=== PATIENT | male | born 1995 | race Two or more races ===

== ENCOUNTER 2019-07-19 14:01 | Inpatient (IN) | payer OTHER ==
[2019-07-19 15:47] VITALS: BMI 19.0
--- NOTE | 2019-07-19 17:48 | HP ---
CIWA Score - Admission Criteria [facility] Guidelines: Admission for Medically Managed Detox: Requires at least one of the followin. CIWA greater than 12 2. Seizures within the past 24 hours 3. Delirium tremens within the past 24 hours 4. Hallucinations within the past 24 hours 5. Acute intervention needed for co occurring medical disorder 6. Acute intervention needed for co occurring psychiatric disorder 7. Severe withdrawal that cannot be handled at a lower level of care (continued vomiting, continued diarrhea, abnormal vital signs) requiring intravenous medication and/or fluids 8. Admission ROS S - HPI Allergies/Adverse Reactions: Allergies Allergy/AdvReac Type Severity Reaction Status Date / Time No Known Allergies Allergy Verified 07/19/19 15:27 History of Present Illness: pt here requesting rehab from cocaine use , reports first age of use 18 , current daily use 3 bags /day , went to [facility] yesterday after using K2 felt dizzy and could not feel his right arm, per d/c paperwork pt had b/w done, ECG , and was referred to this facility . cannabis : 08/28 /day , first age of use 16 tobacco : 08/24 ppd etoh : denies regular use , states used yesterday " it was Thanksgiving " Percocet - illicit use " whenever I can get it, whenever I have money " PMHX : denies PSHX : left inguinal hernia age 22 , r shoulder cyst/ lipoma age 18 PSych : denies , denies SI / HI SHX : lives w/ mother , no children Search Terms: jonh yury, 1995 Search Date: 07/19/2019 05:52:12 PM This report was requested by: Genesis Silva | Reference #: [id number] There are no results for the search terms that you entered. Exam Limitations: No Limitations - Ebola screening Have you traveled outside of the country in the last 21 days: No Have you had contact with anyone from an Ebola affected area: No Do you have a fever: No - Review of Systems Constitutional: Loss of Appetite EENT: reports: No Symptoms Reported Respiratory: reports: No Symptoms reported Cardiac: reports: No Symptoms Reported GI: reports: Diarrhea, Nausea : reports: No Symptoms Reported Musculoskeletal: reports: No Symptoms Reported Integumentary: reports: See HPI Neuro: reports: No Symptoms reported Endocrine: reports: No Symptoms Reported Hematology: reports: No Symptoms Reported Psychiatric: reports: Orientated x3, Anxious Patient History - Smoking Cessation Smoking history: Current every day smoker Have you smoked in the past 12 months: Yes Hx Chewing Tobacco Use: No Initiated information on smoking cessation: Yes 'Breaking Loose' booklet given: 07/19/19 - Substances abused Alcohol Substance route: Oral Frequency: 1-3 times last 30 days Amount used: 3 cups Age of first use: 17 Date of last use: 07/18/19 Cocaine Substance route: Inhalation Frequency: Daily Amount used: 1 bundle Age of first use: 18 Date of last use: 07/12/19 Heroin Substance route: Inhalation Frequency: Daily Amount used: 3 bags Age of first use: 18 Date of last use: 07/18/19 Marijuana/Hashish Substance route: Smoking Frequency: Daily Amount used: 18 Age of first use: 16 Date of last use: 07/18/19 Admission Physical Exam BHS - Vital Signs Vital Signs: Vital Signs - 24 hr 07/19/19 15:28 Temperature 98.6 F Pulse Rate 74 Respiratory 20 Rate Blood Pressure 135/82 - Physical General Appearance: Yes: Mild Distress, Anxious HEENTM: Yes: EOMI, Hearing grossly Normal, Normocephalic, Normal Voice Respiratory: Yes: Chest Non-Tender, Lungs Clear, Normal Breath Sounds, No Respiratory Distress, No Accessory Muscle Use Neck: Yes: No masses,lesions,Nodules, Trachea in good position Cardiology: Yes: Regular Rhythm, Regular Rate, S1, S2 Abdominal: Yes: Non Tender, Soft Musculoskeletal: Yes: Gait Steady Extremities: Yes: Normal Capillary Refill, Normal Range of Motion, Non-Tender Neurological: Yes: Fully Oriented, Alert, Motor Strength 5/5 Integumentary: Yes: Warm - Diagnostic (1) Cocaine abuse Current Visit: Yes Status: Chronic (2) Inhalant abuse with other inhalant-induced disorder Current Visit: Yes Status: Chronic (3) Nicotine dependence Current Visit: Yes Status: Chronic Qualifiers: Nicotine product type: cigarettes Urine Drug Screen - Test Device Lot number: [id number] Expiration date: 03/19/21 - Control Is test valid?: Yes - Results Drug screen NEGATIVE: No Urine drug screen results: THC-Marijuana, LORTETA-Cocaine Inpatient Rehab Admission - Rehab Decision to Admit Inpatient rehab admission?: Yes - Initial Determination Are CD services needed?: Yes Free of communicable disease: Yes Not in need of hospitalization: Yes - Rehab Admission Criteria Previous failed treatment: No Poor recovery environment: No Comorbidities: No Lacks judgement: Yes Patient is meeting Inpatient Rehab admission criteria:: Yes
[2019-07-19] MEDS ORDERED: LOPERAMIDE HCL 2 MG CAPSULE PO PRN (18:49)
[2019-07-19] MEDS ORDERED: ACETAMINOPHEN 325 MG TABLET (FP) PO PRN (18:49)
[2019-07-19] MEDS ORDERED: MAGNESIUM HYDROX 2400MG/30ML ORAL SUSPENSION 30 ML CUP PO PRN (18:49)
[2019-07-19] MEDS ORDERED: MAGNESIUM CITRATE 300 ML BOTTLE PO PRN (18:49)
[2019-07-19] MEDS ORDERED: guaiFENesin 200 MG/10 ML 10 ML UNIT-DOSE CUPS PO PRN (18:49)
[2019-07-19] MEDS ORDERED: P-EPHED 60MG/TRIPROLIDI 2.5MG TABLET PO PRN (18:49)
[2019-07-19] MEDS ORDERED: IBUPROFEN 400 MG TABLET (FP) PO PRN (18:49)
[2019-07-19] MEDS ORDERED: MAG HYDROX/AL HYDROX/SIMETH 30 ML UNIT-DOSE CUP PO PRN (18:49)
[2019-07-19] MEDS ORDERED: MENTHOL/PHENOL 1 EACH UD MM PRN (18:49)
[2019-07-19] MEDS ORDERED: TUBERCULIN PPD 5 TU/0.1ML VIAL ID ONE (19:49)
[2019-07-19] MEDS: MELATONIN 5 MG TABLETS PO PRN (21:22)
[2019-07-19] MEDS: THIAMINE HCL 100 MG TABLET (FP) PO SCH (21:23)
[2019-07-20] MEDS: PRENATAL VITAMINS W/ FOLIC ACID TABLET (FP) PO SCH (09:56)
[2019-07-20 12:28] LABS: HEMATOCRIT 44.7 % (35.4-49); HEMOGLOBIN 14.7 GM/dL (11.7-16.9); MCH 29.9 pg (25.7-33.7); MCHC 32.8 g/dl (32.0-35.9); MEAN CELL VOLUME 91.2 fl (80-96); MEAN PLT VOLUME 9.5 fl (7.5-11.1); PLATELET COUNT 322 K/MM3 (134-434); RDW 12.1 % (11.9-15.9); WHITE BLOOD COUNT 8.1 K/mm3 (4.0-10.0)
[2019-07-20 12:37] LABS: BILIRUBIN,TOTAL 0.9 mg/dL (0.2-1); BLOOD UREA NITROGEN 9.5 mg/dL (7-18); CALCIUM 9.5 mg/dL (8.5-10.1); CREATININE 1.1 mg/dL (0.55-1.3)
[2019-07-20] MEDS: hydrOXYzine PAMOATE 25 MG CAPSULE (FP) PO PRN ×2 (17:26→21:32)
[2019-07-20] MEDS: NICOTINE POLACRILEX 2 MG GUM BC PRN ×2 (17:26→21:50)
[2019-07-20] MEDS: THIAMINE HCL 100 MG TABLET (FP) PO SCH (21:32)
[2019-07-20] MEDS: MELATONIN 5 MG TABLETS PO PRN (21:33)
[2019-07-21] MEDS: PRENATAL VITAMINS W/ FOLIC ACID TABLET (FP) PO SCH (10:03)
[2019-07-21] MEDS: hydrOXYzine PAMOATE 25 MG CAPSULE (FP) PO PRN ×2 (10:16→21:45)
[2019-07-21] MEDS: NICOTINE POLACRILEX 2 MG GUM BC PRN (10:18)
[2019-07-21] MEDS: THIAMINE HCL 100 MG TABLET (FP) PO SCH (21:44)
[2019-07-21] MEDS: MELATONIN 5 MG TABLETS PO PRN (21:44)
[2019-07-22 07:01] VITALS: BP 136/88; PULSE 80; TEMP 97.8
[2019-07-22] MEDS: NICOTINE POLACRILEX 2 MG GUM BC PRN (10:58)
[2019-07-22] MEDS: hydrOXYzine PAMOATE 25 MG CAPSULE (FP) PO PRN (10:59)
[2019-07-22] MEDS: PRENATAL VITAMINS W/ FOLIC ACID TABLET (FP) PO SCH (11:27)
--- NOTE | 2019-07-22 12:33 | PN ---
[facility] Progress Note Note: Pt is a 24 y/o male with a hx of PEBBLES admitted to rehab from [facility] on 07/19/19. Pt reports he goes to [facility] for medical care but does not have a primary care doctor. pt reports anxiety and urge to leave treatment and go to "smoke wee and crack". Reports he is not hydrating enough except water with medications. Pt reports vistaril 25 mg "not doing me nothing". Vital Signs - 24 hr 07/22/19 07/22/19 07/22/19 00:30 03:30 07:00 Temperature 97.8 F Pulse Rate 80 Respiratory 18 18 18 Rate Blood Pressure 136/88 Laboratory Tests 07/20/19 07/20/19 07/20/19 10:10 10:10 10:10 WBC 8.1 RBC 4.90 Hgb 14.7 Hct 44.7 MCV 91.2 MCH 29.9 MCHC 32.8 RDW 12.1 Plt Count 322 MPV 9.5 Sodium 138 Potassium 4.0 Chloride 107 Carbon Dioxide 29 Anion Gap 3 L BUN 9.5 Creatinine 1.1 Est GFR (CKD-EPI)AfAm 109.86 Est GFR (CKD-EPI)NonAf 94.79 Random Glucose 75 Calcium 9.5 Total Bilirubin 0.9 AST 11 L ALT 23 Alkaline Phosphatase 94 Total Protein 7.0 Albumin 4.0 HIV 1&2 Antibody Screen Negative HIV P24 Antigen Negative UA result pending A/P New rehab pt. Maintain safety Continue rehab Vistaril 50 mg po q4h prn for anxiety/agitations Encouraged pt to increase po fluids and focus on treatment.
[2019-07-22 15:33] LABS: PH,URINE 6.5 (5.0-8.0); URINE APPEARANCE CLEAR; URINE BILIRUBIN NEGATIVE (NEGATIVE); URINE COLOR YELLOW; URINE GLUCOSE (UA) NEGATIVE (NEGATIVE); URINE KETONE NEGATIVE (NEGATIVE); URINE LEUK ESTERASE NEGATIVE (NEGATIVE); URINE NITRITE NEGATIVE (NEGATIVE); URINE PROTEIN NEGATIVE (NEGATIVE); URINE UROBILINOGEN 0.2 mg/dL (0.2-1.0)
[2019-07-22] MEDS: MELATONIN 5 MG TABLETS PO PRN (21:29)
[2019-07-22] MEDS: hydrOXYzine PAMOATE 50 MG CAPSULE (FP) PO PRN (21:29)
[2019-07-22] MEDS: THIAMINE HCL 100 MG TABLET (FP) PO SCH (21:29)
[2019-07-23] MEDS: PRENATAL VITAMINS W/ FOLIC ACID TABLET (FP) PO SCH (10:29)
[2019-07-23] MEDS: hydrOXYzine PAMOATE 50 MG CAPSULE (FP) PO PRN (10:30)
[2019-07-23] MEDS: NICOTINE POLACRILEX 2 MG GUM BC PRN (10:31)
--- NOTE | 2019-07-23 11:59 | DS ---
[facility] Rehab Discharge Summary - [facility] Rehab Discharge Summary Admission Date: 07/19/19 Discharge Date: 07/23/19 - History Present History: Cannabis dependence, Cocaine dependence Additional Comments: Pt is a 24 y/o male with a hx of PEBBLES admitted to rehab from [facility] on 07/19/19. Pt reports he goes to [facility] for medical care but does not have a primary care doctor. Pt became very agitated with very poor impulse control. Requesting to leave treatment today for personal reasons. Pt impulsively walked off and did not want to go through normal discharge process and "just want to leave now". Pertinent Past History: Left Inguinal hernia repair in childhood right shoulder cyst Lipoma - Discharge Physical Exam Vital Signs: Vital Signs Temperature 97.8 F 07/22/19 07:00 Pulse Rate 80 07/22/19 07:00 Respiratory Rate 18 07/23/19 06:51 Blood Pressure 136/88 07/22/19 07:00 O2 Sat by Pulse Oximetry (%) Alert o x 3 nad but anxious to exit. oob ambulating with steady gait. Declined any other PE check up. Pertinent Admission Physical Exam Findings: Laboratory Tests 07/20/19 07/20/19 07/20/19 10:10 10:10 10:10 WBC 8.1 RBC 4.90 Hgb 14.7 Hct 44.7 MCV 91.2 MCH 29.9 MCHC 32.8 RDW 12.1 Plt Count 322 MPV 9.5 Sodium 138 Potassium 4.0 Chloride 107 Carbon Dioxide 29 Anion Gap 3 L BUN 9.5 Creatinine 1.1 Est GFR (CKD-EPI)AfAm 109.86 Est GFR (CKD-EPI)NonAf 94.79 Random Glucose 75 Calcium 9.5 Total Bilirubin 0.9 AST 11 L ALT 23 Alkaline Phosphatase 94 Total Protein 7.0 Albumin 4.0 Urine Color Urine Appearance Urine pH Ur Specific [place] Urine Protein Urine Glucose (UA) Urine Ketones Urine Blood Urine Nitrite Urine Bilirubin Urine Urobilinogen Ur Leukocyte Esterase RPR Titer Nonreactive HIV 1&2 Antibody Screen HIV P24 Antigen 07/20/19 07/22/19 10:10 10:05 WBC RBC Hgb Hct MCV MCH MCHC RDW Plt Count MPV Sodium Potassium Chloride Carbon Dioxide Anion Gap BUN Creatinine Est GFR (CKD-EPI)AfAm Est GFR (CKD-EPI)NonAf Random Glucose Calcium Total Bilirubin AST ALT Alkaline Phosphatase Total Protein Albumin Urine Color Yellow Urine Appearance Clear Urine pH 6.5 Ur Specific [place] 1.026 Urine Protein Negative Urine Glucose (UA) Negative Urine Ketones Negative Urine Blood Negative Urine Nitrite Negative Urine Bilirubin Negative Urine Urobilinogen 0.2 Ur Leukocyte Esterase Negative RPR Titer HIV 1&2 Antibody Screen Negative HIV P24 Antigen Negative - Treatment Discharge Condition: Discharge condition good Hospital Course: safety maintained while in rehab Pt not compliant with treatment - Medication Discharge Medications: Ambulatory Orders NK [No Known Home Medication] 07/19/19 - Medication-Assisted Treatment (MAT) Medication-Assisted Treatment (MAT): No - Discharge Instructions Diet, activity, other medical instructions: Diet:regular Activity: oob ad sonia Other medical instructions:follow up with CD aftercare as scheduled. Follow up with primary care with [facility] within 1-2 weeks after discharge. - Diagnosis (1) Cocaine abuse Status: Chronic (2) Inhalant abuse with other inhalant-induced disorder Status: Chronic (3) Nicotine dependence Status: Chronic Qualifiers: Nicotine product type: cigarettes Substance use status: uncomplicated Qualified Code(s): F17.210 - Nicotine dependence, cigarettes, uncomplicated - Follow-up Referral Minutes to complete discharge: 20 - AMA Did Patient Leave Against Medical Advice: Yes
== END 2019-07-23 12:15 | disposition left against medical advice (07) | DRG 770 ==
LOC: YASAS 14:01 → Y5N 18:14
PROVIDERS: ADMIT Allergy & Immunology; ATTEND Allergy & Immunology
PROC: HZ42ZZZ Group Counseling for Substance Abuse Treatment, Cognitive-Behavioral (ICD-10-PCS; principal; 2019-07-19)
DX: F11.20 Opioid dependence, uncomplicated (principal); F10.10 Alcohol abuse, uncomplicated; F14.20 Cocaine dependence, uncomplicated; F12.20 Cannabis dependence, uncomplicated; F18.188 Inhalant abuse with other inhalant-induced disorder; F17.210 Nicotine dependence, cigarettes, uncomplicated; D17.79 Benign lipomatous neoplasm of other sites
CPT/HCPCS: 36415; 80053; 81003; 85027; 86593; 87389